=== PATIENT | male | born 1985 ===

== ENCOUNTER 2018-12-25 16:17 | Emergency (ER) | payer SELFPAY ==
--- NOTE | 2018-12-25 17:31 | Event Note ---
ED Screening Note Date of service: 12/25/18 Time: 17:27 ED Screening Note: This is a 33 y.o. M. that presents to the ER with chest pain that is intermittent. Patient states he smoked crack cocaine and drinking ETOH 3 days ago. Also reports dizziness. This initial assessment/diagnostic orders/clinical plan/treatment(s) is/are subject to change based on patients health status, clinical progression and re- assessment by fellow clinical providers in the ED. Further treatment and workup at subsequent clinical providers discretion. Patient/guardian urged not to elope from the ED as their condition may be serious if not clinically assessed and managed. Initial orders include: Labs, EKG, & CXR
[2018-12-25 17:52] LABS: Basophils # (Auto) 0.1 K/mm3 (0.0-0.1); Basophils % (Auto) 0.8 % (0.0-1.8); Eosinophils # (Auto) 0.2 K/mm3 (0.0-0.4); Eosinophils % (Auto) 2.7 % (0.0-4.3); Hematocrit 44.3 % (35.5-45.6); Hemoglobin 15.2 gm/dl (11.8-15.2); Lymphocytes # (Auto) 2.1 K/mm3 (1.2-5.4); Mean Corpuscular HGB Conc 34 % (32-34); Mean Corpuscular Volume 87 fl (84-94); Monocytes # (Auto) 0.6 K/mm3 (0.0-0.8); Platelet Count 219 K/mm3 (140-440); Red Blood Count 5.08 M/mm3 (3.65-5.03); Red Cell Distribution Width 14.4 % (13.2-15.2)
[2018-12-25 18:09] LABS: BUN/Creatinine Ratio 15; Blood Urea Nitrogen 12 mg/dL (9-20); Calcium 9.3 mg/dL (8.4-10.2); Hemolysis Index 12
--- NOTE | 2018-12-25 18:29 | XRay Report ---
CHEST 1 VIEW 12/25/2018 6:04 PM INDICATION / CLINICAL INFORMATION: Chest Pain. COMPARISON: None available. FINDINGS: SUPPORT DEVICES: None. HEART / MEDIASTINUM: No significant abnormality. LUNGS / PLEURA: No significant pulmonary or pleural abnormality. No pneumothorax. ADDITIONAL FINDINGS: No significant additional findings. IMPRESSION: 1. No acute findings. Signer Name: Lisa Salas MD Signed: 12/25/2018 6:25 PM Workstation Name: [id number]
[2018-12-25 18:51] LABS: Amphetamine Screen,Urine PRESUMPTIVE NEGATIVE; Cannabinoid Screen,Urine PRESUMPTIVE NEGATIVE; Cocaine Screen,Urine PRESUMPTIVE NEGATIVE; Methadone Screen,Urine PRESUMPTIVE NEGATIVE; Opiate Screen,Urine PRESUMPTIVE NEGATIVE
[2018-12-25] MEDS ORDERED: ASPIRIN PO ONE (18:56)
[2018-12-25] MEDS ORDERED: ANTIVERT PO ONE (18:56)
[2018-12-25] MEDS ORDERED: NACL 0.9% 1000 ML 1,000 ML IV ONE (18:56)
[2018-12-25 19:20] LABS: Benzodiazepines Screen,Urine PRESUMPTIVE NEGATIVE
[2018-12-25 20:55] VITALS: BP 136/92
--- NOTE | 2018-12-25 20:55 | Emergency Department Report ---
ED Shortness of Breath HPI - General Chief Complaint: Dyspnea/Respdistress Stated Complaint: PEE/CHEST PAIN Time Seen by Provider: 12/25/18 17:26 Source: patient Mode of arrival: Ambulatory Limitations: No Limitations - History of Present Illness Initial Comments: Patient is a 33-year-old male with a history of chronic alcohol and can abuse who presents to the ED with shortness of breath and chest pain intermittently for the last 3 days after heavy alcohol drinking and cocaine abuse. Patient admits to frequent cocaine abuse but states that he occasionally drinks alcohol but that 3 days ago he drank alcohol heavily mixing various alcoholic drinks. Patient states that it was during this time that he safely shortness of breath and chest pain which has been intermittent since then. Patient states that he has not used any cocaine since then but admits to drinking beer 24 hours ago. Patient also states that he works in the heat all day long and only drinks 2 L of fluids. Patient states that the shortness of breath this mainly when he is exerting himself. Patient states that he has also been feeling lightheaded and generally weak. Patient denies dizziness, headache, nausea, vomiting, abdominal pain, back pain, neck pain, syncope, diarrhea or fever and chills or cough. MD Complaint: shortness of breath, chest pain -: Sudden, days(s) (3) Radiation: other (None) Severity: moderate Pain Scale: 4 Quality: dull, aching Consistency: intermittent Improves With: nothing Worsens With: exertion Known History Of: other (Cocaine and alcohol abuse) Associated Symptoms: chest pain, other (generalized weakness and dyspnea) Treatments Prior to Arrival: none - Related Data Home Oxygen Therapy: No Allergies Allergy/AdvReac Type Severity Reaction Status Date / Time No Known Allergies Allergy Unverified 12/25/18 17:26 ED Review of Systems ROS: Stated complaint: PEE/CHEST PAIN Other details as noted in HPI Constitutional: malaise, weakness. denies: chills, fever Eyes: denies: eye pain, eye discharge, vision change ENT: denies: ear pain, throat pain Respiratory: shortness of breath. denies: cough, wheezing Cardiovascular: chest pain, dyspnea on exertion. denies: palpitations Endocrine: no symptoms reported Gastrointestinal: denies: abdominal pain, nausea, diarrhea Genitourinary: denies: urgency, dysuria Musculoskeletal: denies: back pain, joint swelling, arthralgia Skin: denies: rash, lesions Neurological: denies: headache, weakness, paresthesias Psychiatric: denies: anxiety, depression, auditory hallucinations, visual hallucinations, suicidal thoughts Hematological/Lymphatic: denies: easy bleeding, easy bruising ED Past Medical Hx - Past Medical History Previous Medical History?: Yes Additional medical history: SOB sometimes - Surgical History Past Surgical History?: No - Social History Smoking Status: Current Every Day Smoker Substance Use Type: Alcohol, Cocaine, Marijuana ED Physical Exam - General Limitations: No Limitations General appearance: alert, in no apparent distress - Head Head exam: Present: atraumatic, normocephalic, normal inspection - Eye Eye exam: Present: normal appearance, PERRL, EOMI. Absent: conjunctival injection, periorbital swelling, periorbital tenderness - ENT ENT exam: Present: normal exam, normal orophraynx, mucous membranes moist, TM's normal bilaterally, normal external ear exam - Neck Neck exam: Present: normal inspection, full ROM. Absent: tenderness - Respiratory Respiratory exam: Present: normal lung sounds bilaterally. Absent: respiratory distress, wheezes, rales, rhonchi, chest wall tenderness, accessory muscle use - Cardiovascular Cardiovascular Exam: Present: regular rate, normal rhythm, normal heart sounds. Absent: systolic murmur, diastolic murmur, rubs, gallop - GI/Abdominal GI/Abdominal exam: Present: soft, normal bowel sounds. Absent: tenderness, gu arding, hyperactive bowel sounds, hypoactive bowel sounds, organomegaly - Rectal Rectal exam: Present: deferred - Extremities Exam Extremities exam: Present: normal inspection, full ROM, normal capillary refill - Back Exam Back exam: Present: normal inspection, full ROM. Absent: tenderness, CVA tenderness (R), CVA tenderness (L), muscle spasm, paraspinal tenderness - Neurological Exam Neurological exam: Present: alert, oriented X3, CN II-XII intact, normal gait, reflexes normal - Psychiatric Psychiatric exam: Present: normal affect, normal mood, anxious. Absent: manic, homicidal ideation, suicidal ideation - Skin Skin exam: Present: warm, dry, intact, normal color. Absent: rash ED Course Vital Signs 12/25/18 12/25/18 17:27 19:10 Temperature 98.8 F 98.1 F Pulse Rate 77 76 Respiratory 20 16 Rate Blood Pressure 170/87 Blood Pressure 145/85 [Left] O2 Sat by Pulse 98 97 Oximetry - Reevaluation(s) Reevaluation #1: 12/25/18 20:58 This is a 33-year-old male with a history of chronic alcohol and cocaine abuse who presented to the ED with intermittent chest pain or shortness of breath after heavy alcohol and cocaine in abuse 3 days ago. In the ED, patient is alert and oriented 3 and is not in distress. Patient spoke with the provider through a [place] speaking staffing [employer] staff nurse from history taking, physical exam, explanation of plan of care and discussion of lab test results and disposition plans. Chest x-ray shows no acute cardiopulmonary abnormalities. Lab test results were reviewed and showed no acute process including initial troponin and repeat troponin levels. EKG shows normal sinus rhythm with ventricular rate of [address] or T-wave abnormalities. The patient's heart score is 1 for low risk ACS. The JIMMY is 0 and is PERC negative. On reevaluation, the patient is resting comfortably on the bed and states that he is feeling much better. Patient will discharge home and advised to consider going to drug and or alcohol rehabilitation program. Patient was otherwise advised to follow-up with [facility] for further evaluation and follow-up. Patient was also advised to return to the ED immediately if symptoms get worse. 12/25/18 21:20 ED Medical Decision Making - Lab Data Result diagrams: 12/25/18 17:35 12/25/18 17:35 - EKG Data EKG shows normal: sinus rhythm Rate: normal - EKG Data Interpretation: normal EKG 12/25/18 21:02 Normal sinus rhythm, ventricular rate of 84 bpm, no ST or T-wave abnormalities. - Radiology Data Radiology results: report reviewed, image reviewed Chest x-ray shows no acute cardiopulmonary abnormalities or pneumonitis. - Medical Decision Making This is a 33-year-old male with a history of chronic alcohol and cocaine abuse who presented to the ED with intermittent chest pain or shortness of breath after heavy alcohol and cocaine in abuse 3 days ago. In the ED, patient is alert and oriented 3 and is not in distress. Patient spoke with the provider through a [place] speaking staffing [employer] staff nurse from history taking, physical exam, explanation of plan of care and discussion of lab test results and disposition plans. Chest x-ray shows no acute cardiopulmonary abnormalities. Lab test results were reviewed and showed no acute process including initial troponin and repeat troponin levels. EKG shows normal sinus rhythm with ventricular rate of [address] or T-wave abnormalities. The patient's heart score is 1 for low risk ACS. The JIMMY is 0 and is PERC negative. On reevaluation, the patient is resting comfortably on the bed and states that he is feeling much better. Patient will discharge home and advised to consider going to drug and or alcohol rehabilitation program. Patient was otherwise advised to follow-up with [facility] for further evaluation and follow-up. Patient was also advised to return to the ED immediately if symptoms get worse. - Differential Diagnosis ACS; Dyspnea; Pneumonia; Drug abuse; Alcohol abuse Critical care attestation.: If time is entered above; I have spent that time in minutes in the direct care of this critically ill patient, excluding procedure time. ED Disposition Clinical Impression: Acute nonspecific chest pain with low risk of coronary artery disease, Shortness of breath, Cocaine abuse, continuous use, Alcohol abuse, continuous Disposition: DC-01 TO HOME OR SELFCARE Is pt being admited?: No Does the pt Need Aspirin: No Condition: Stable Instructions: Chest Pain (ED), Angina (ED), Cocaine Abuse (ED), Abuse of Alcohol (ED) Additional Instructions: Follow-up at [facility] in 5-7 days for reevaluation. Considering the alcohol or drug rehabilitation programs to control these addictions. Return to the ED immediately if symptoms get worse. Referrals: [facility] [Outside] - 3-5 Days Time of Disposition: 21:07 Print Language: ANDORRAN
== END 2018-12-25 21:22 | disposition home or self-care (01) ==
LOC: ED 16:17
DX: I25.10 Atherosclerotic heart disease of native coronary artery without angina pectoris (principal); F14.10 Cocaine abuse, uncomplicated; F10.10 Alcohol abuse, uncomplicated; F17.200 Nicotine dependence, unspecified, uncomplicated
CPT/HCPCS: 36415; 71045; 80048; 80307; 84484; 85025; 93005; 93010; 99284; J7030